=== PATIENT | female | born 1965 | race African-American/Black ===

== ENCOUNTER 2017-05-27 15:27 | Emergency (ER) | payer OTHER, BC ==
[2017-05-27 15:58] VITALS: BP 124/75; PULSE 104; TEMP 98; BMI 40.3
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
[2017-05-27] MEDS ORDERED: IBUPROFEN 400 MG TABLET (FP) PO ONE (17:02)
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
== END 2017-05-27 17:16 | disposition home or self-care (01) ==
LOC: JERFT 15:27
DX: M54.5 Low back pain (principal); V44.6XXA Car passenger injured in collision with heavy transport vehicle or bus in traffic accident, initial encounter; Y92.414 Local residential or business street as the place of occurrence of the external cause; Y93.89 Activity, other specified; Y99.8 Other external cause status
CPT/HCPCS: 99281-25

== ENCOUNTER 2019-02-26 08:52 | Day surgery (SDC) | payer BC ==
[2019-02-25 13:47] VITALS: BMI 42.0
[2019-02-26 11:08] VITALS: TEMP 98.5
[2019-02-26 11:34] VITALS: PULSE 72
[2019-02-26 12:11] VITALS: BP 129/51
--- NOTE | 2019-02-27 18:44 | PATH ---
Surgical Pathology Report Patient Name: EL BRAXTON [facility]. Rec. #: [id number] /Age/Gender: 1965 (Age: 53) / F Account: [id number] Location: U-ENDOSCOPY Taken: 02/26/2019 Received: 02/26/2019 Reported: 02/27/2019 Physicians: Adria Gandhi D.O. Specimen(s) Received RIGHT COLON POLYP Clinical History History of adenomatous polyp with high grade dysplasia Postoperative diagnosis: Colon polyp, hemorrhoids Final Diagnosis RIGHT COLON POLYP, POLYPECTOMY: TUBULAR ADENOMA. Electronically Signed Anirudh Escobedo M.D. Gross Description Received in formalin, labeled "right colon polyp" is a garcia, irregular portion of soft tissue measuring 0.4 cm. in greatest dimension. The specimen is submitted in toto in one cassette. /02/26/201902/26/2019
== END 2019-02-26 12:10 | disposition home or self-care (01) ==
LOC: JASU-ENDO 08:52
PROVIDERS: ATTEND Internal Medicine Gastroenterology
PROC: 0DBF8ZX Excision of Right Large Intestine, Via Natural or Artificial Opening Endoscopic, Diagnostic (ICD-10-PCS; principal; 2019-02-26 09:30)
DX: Z12.11 Encounter for screening for malignant neoplasm of colon (principal); D12.6 Benign neoplasm of colon, unspecified; K64.8 Other hemorrhoids
CPT/HCPCS: 81025; 88305-TC

== ENCOUNTER 2020-05-15 09:34 | Emergency (ER) | payer BC | END 2020-05-15 10:00 | disposition home or self-care (01) | LOC: JVIRT 09:34 | DX: Z11.52 Encounter for screening for COVID-19 (principal) | CPT/HCPCS: C9803; G2012-GT; U0003 ==

== ENCOUNTER 2022-03-22 04:31 | Day surgery (SDC) | payer BC ==
[2022-03-21 09:44] VITALS: BMI 38.3
[2022-03-22 13:26] VITALS: TEMP 98
[2022-03-22 13:27] VITALS: RESP 18
[2022-03-22 13:52] VITALS: BP 124/70; PULSE 77
== END 2022-03-22 14:28 | disposition home or self-care (01) ==
LOC: JASU-ENDO 04:31
PROVIDERS: ATTEND Internal Medicine Gastroenterology
PROC: 0DBL8ZX Excision of Transverse Colon, Via Natural or Artificial Opening Endoscopic, Diagnostic (ICD-10-PCS; principal; 2022-03-22 11:15)
DX: Z12.11 Encounter for screening for malignant neoplasm of colon (principal); D17.5 Benign lipomatous neoplasm of intra-abdominal organs; K64.8 Other hemorrhoids
CPT/HCPCS: 88305-TC